=== PATIENT | female | born 1955 ===

== ENCOUNTER 2018-09-09 08:07 | Emergency (ER) | payer BC ==
[2018-09-09 08:07] VITALS: BMI 26.9
[2018-09-09 08:28] VITALS: RESP 18; TEMP 98.4
--- NOTE | 2018-09-09 08:32 | ED PDOC ---
Arrival/HPI - General Chief Complaint: Abnormal Skin Integrity Time Seen by Provider: 09/09/18 08:08 Historian: Patient - History of Present Illness Narrative History of Present Illness (Text): 09/09/18 08:32 A 63 year old female with no significant past medical history presents to the emergency department complaining of transient pale skin in the morning x2 days. Patient reports she was given the flu shot from her primary care doctor and noticed her skin appearing pale and yellow in the mornings following the flu shot. Patient was concerned and came to the ER for evaluation. Patient denies any fever, chills, or any other complaints. PMD: Dr. Smart Time/Duration: Other (2 days) Symptom Onset: Gradual Symptom Course: Unchanged Activities at Onset: Light Context: Home Past Medical History - Provider Review Nursing Documentation Reviewed: Yes - Past History Past History: No Previous - Infectious Disease Hx of Infectious Diseases: None - Tetanus Immunization Tetanus Immunization: Unknown - Past Medical History Past Medical History: No Previous - Cardiac Hx Cardiac Disorders: No - Pulmonary Hx Respiratory Disorders: No - Neurological Hx Neurological Disorder: No - HEENT Hx HEENT Disorder: No - Renal Hx Renal Disorder: No - Endocrine/Metabolic Hx Endocrine Disorders: No - Hematological/Oncological Hx Blood Disorders: No - Integumentary Hx Dermatological Disorder: No - Musculoskeletal/Rheumatological Hx Musculoskeletal Disorders: No Hx Falls: No - Gastrointestinal Hx Gastrointestinal Disorders: No - Genitourinary/Gynecological Hx Genitourinary Disorders: No Hx Reproductive Disorders: No - Psychiatric Hx Psychophysiologic Disorder: Yes Hx Anxiety: Yes Hx Bipolar Disorder: No Hx Depression: Yes Hx Emotional Abuse: No Hx Physical Abuse: No Hx Schizophrenia: No Hx Sexual Abuse: No Hx Substance Use: No - Past Surgical History Past Surgical History: No Previous - Surgical History Hx Tubal Ligation: Yes - Anesthesia Hx Anesthesia: No Hx Anesthesia Reactions: No Hx Malignant Hyperthermia: No - Suicidal Assessment Feels Threatened In Home Enviroment: No Family/Social History - Physician Review Nursing Documentation Reviewed: Yes Family/Social History: No Known Family HX Smoking Status: Never Smoked Hx Alcohol Use: No Hx Substance Use: No Hx Substance Use Treatment: No Allergies/Home Meds Allergies/Adverse Reactions: Allergies No Known Allergies Allergy (Verified 03/01/16 06:39) Home Medications: Home Meds Medication Instructions Recorded Confirmed No Known Home Med 03/01/16 03/01/16 Review of Systems - Physician Review All systems were reviewed & negative as marked: Yes - Review of Systems Constitutional: absent: Fevers, Night Sweats Skin: Other (pale and yellow appearing) Physical Exam - Physical Exam Narrative Physical Exam (Text): 09/09/18 08:36 Head: Atraumatic. Normocephalic. Eyes: PERRL. EOMI. Conjunctivae are not pale. ENT: Mucous membranes are moist and intact. Oropharynx is clear and symmetric. Neck: Supple. Full ROM. No JVD. No lymphadenopathy. Cardiovascular: Regular rate. Regular rhythm. No murmurs, rubs, or gallops. Distal pulses are 2+ and symmetric. Pulmonary/Chest: No evidence of respiratory distress. Clear to auscultation bilaterally. No wheezing, rales or rhonchi. Abdominal: Soft and non-distended. There is no tenderness. No rebound, guarding, or rigidity. No organomegaly. Good bowel sounds. Back: No CVA tenderness. Extremities: No edema. No cyanosis. No clubbing. Full range of motion in all extremities. No calf tenderness. Skin: Skin is warm and dry. No petechiae. No purpura. No jaundice. No scleral icterus. No pallor. Neurological: Alert, awake, and oriented to person, place, time, and situation. Normal speech. Psychiatric: Good eye contact. Normal interaction, affect, and behavior. Vital Signs Reviewed: Yes Vital Signs Temp Pulse Resp BP Pulse Ox 09/09/18 08:27 98.4 F 110 H 18 152/116 H 98 Temperature: Afebrile Blood Pressure: Hypertensive Pulse: Tachycardic Respiratory Rate: Normal Medical Decision Making ED Course and Treatment: 09/09/18 08:38 Impression: 63 year old female complaining of transient pale skin in the morning x2 days. Plan: -- CMP -- CBC -- Reassess and disposition Prior Visits: Notes and results from previous visits were reviewed. Progress Notes: 09/09/18 10:14 Discharged home, f/u PMD, return to Emergency department for any other worrisome symptoms. - Scribe Statement The provider has reviewed the documentation as recorded by the Sung Khalil All medical record entries made by the Scribe were at my direction and personally dictated by me. I have reviewed the chart and agree that the record accurately reflects my personal performance of the history, physical exam, medical decision making, and the department course for this patient. I have also personally directed, reviewed, and agree with the discharge instructions and disposition. Disposition/Present on Arrival - Present on Arrival Any Indicators Present on Arrival: No History of DVT/PE: No History of Uncontrolled Diabetes: No Urinary Catheter: No History of Decub. Ulcer: No History Surgical Site Infection Following: None - Disposition Have Diagnosis and Disposition been Completed?: Yes Diagnosis: Pale complexion Disposition: HOME/ ROUTINE Disposition Time: 10:15 Patient Plan: Discharge Condition: STABLE Discharge Instructions (ExitCare): Flu Vaccine Forms: Fluid (Irish)
[2018-09-09 09:11] LABS: ALB/GLOB RATIO 1.2 (1.1-1.8); ALBUMIN 4.1 g/dL (3.0-4.8); ALT/SGPT 42 U/L (7-56); AST/SGOT 35 U/L (14-36); BASO # 0.06 K/mm3 (0.0-2.0); BASO % 0.6 % (0.0-3.0); BLOOD UREA NITROGEN 22 mg/dL (7-21); CALCIUM 9.1 mg/dL (8.4-10.5); EOS # 0.1 (0.0-0.7); EOS % 1.5 % (1.5-5.0); GFR NON-AFRICAN AMERICAN > 60; GRAN # 6.03 (1.4-6.5); GRAN % 64.6 % (50.0-68.0); HEMOGLOBIN 13.9 g/dL (12.0-16.0); LYMPH # 2.2 (1.2-3.4); LYMPH % 23.5 % (22.0-35.0); MEAN CELL VOLUME 88.3 fl (80.0-105.0); MEAN CORPUSCULAR HEMOGLOBIN 29.4 pg (25.0-35.0); MEAN CORPUSCULAR HGB CONC 33.3 g/dl (31.0-37.0); MEAN PLATELET VOLUME 9.7 fl (7.0-11.0); MONO # 0.9 (0.1-0.6); MONO % 9.8 % (1.0-6.0); RBC 4.72 10^6/uL (3.5-6.1); RED CELL DISTRIBUTION WIDTH 14.5 % (11.5-14.5); WHITE BLOOD COUNT 9.3 10^3/uL (4.5-11.0)
[2018-09-09 10:29] VITALS: BP 160/90; PULSE 92; O2SAT 99
== END 2018-09-09 10:29 | disposition home or self-care (01) ==
LOC: ED 08:07
DX: L98.8 Other specified disorders of the skin and subcutaneous tissue (principal)

== ENCOUNTER 2018-09-20 17:22 | Outpatient (CLI) | payer BC | END 2018-09-20 17:23 | disposition home or self-care (01) | LOC: RAD 17:22 ==

== ENCOUNTER 2018-11-24 09:48 | Emergency (ER) | payer BC ==
[2018-11-24 09:49] VITALS: BMI 26.9
== END 2018-11-24 10:03 | disposition left against medical advice (07) ==
LOC: ED 09:48
DX: Z02.89 Encounter for other administrative examinations (principal); R05 Cough